=== PATIENT | male | born 1990 ===

== ENCOUNTER 2023-04-17 11:40 | Emergency (ER) | payer SELFPAY ==
[~2023-04-17] VITALS: Ht 177.8 cm; Wt 102.0 kg
--- NOTE | 2023-04-17 12:08 | ED Cough/URI ---
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 Source: patient Exam Limitations: no limitations (PADILLA CAMARA) History of Present Illness Date Seen by Provider: Apr 17, 2023 Time Seen by Provider: 12:04 Initial Comments Patient Is a 32-year-old male who presents ED with shortness of breath right- sided posterior rib pain. Patient states symptoms started about a week ago. Nasal congestion with a wet cough. Coughing seems to be worse in the morning when he wakes up. States he feels congested. Today started having some wheezing uses albuterol inhaler this small with improvement of this developing right-sided rib pain today and shortness of breath this morning. Wheezing has improved. Possible exposure to COVID. History of asthma but has not used his inhaler for at least 5 years. He is concern for upper respiratory infection. Denies fever, chills, nausea, vomiting, diarrhea, abdominal pain, sore throat or ear pain. Patient denies of any recent travels or surgeries. Denies of any history of COPD, smoking, heart disease, diabetes (PADILLA CAMARA) Allergies and Home Medications Allergies Coded Allergies: No Known Drug Allergies (Unverified , 04/17/23) Patient Home Medication List Home Medication List Reviewed: Yes (PADILLA CAMARA) Azithromycin (Azithromycin) 250 Mg Tablet, 250 MG PO UD Prescribed by: JESSICA JONES on 04/17/23 1236 Prednisone (Prednisone) 20 Mg Tab, 40 MG PO DAILY Prescribed by: JESSICA JONES on 04/17/23 1236 Review of Systems Review of Systems Constitutional: No chills, No diaphoresis EENTM: nose congestion; No hearing loss, No ear pain, No blurred vision Respiratory: cough; No dyspnea on exertion Cardiovascular: No chest pain, No edema Gastrointestinal: No abdominal pain, No diarrhea, No nausea, No vomiting Genitourinary: No decreased output, No discharge Musculoskeletal: No back pain Skin: No change in color (PADILLA CAMARA) All Other Systems Reviewed Negative Unless Noted: Yes (PADILLA CAMARA) Past Htyrmly-Yfnrpl-Bxrpqr Hx Patient Social History Tobacco Use?: No Use of E-Cig and/or Vaping dev: No Substance use?: No Alcohol Use?: Yes Alcohol type: Beer Alcohol Frequency: Once in a while Pt feels they are or have been: No (PADILLA ACMARA) Immunizations Up To Date Influenza Vaccine Up-to-Date: Yes; Up-to-Date First/Initial COVID19 Vaccinat: 2020 COVID19 Vaccine Baker Operator Automatic: j&j (PADILLA CAMARA) Past Medical History Surgery/Hospitalization HX: DENIES (PADILLA CAMARA) Physical Exam Vital Signs - First Documented 04/17/23 11:49 Temp 37.1 Pulse 74 Resp 16 B/P (MAP) 149/98 (115) Pulse Ox 97 (HOME MERINO MD) Capillary Refill : (PADILLA CAMARA) Height: '" Weight: lbs. oz. kg; 32.00 BMI Method: General Appearance: WD/WN, no apparent distress Eyes: Bilateral Eye Normal Inspection, Bilateral Eye PERRL, Bilateral Eye EOMI HEENT: PERRL/EOMI, normal ENT inspection, TMs normal, pharynx normal Neck: non-tender, full range of motion, supple, normal inspection Respiratory: chest non-tender, lungs clear, normal breath sounds, no respiratory distress, no accessory muscle use Cardiovascular: regular rate, rhythm, no edema, no gallop, no JVD Gastrointestinal: normal bowel sounds, non tender, soft, no organomegaly Extremities: normal range of motion, normal inspection, no pedal edema, no calf tenderness Neurologic/Psychiatric: discovery guide II-XII nml as tested, no motor/sensory deficits, alert, normal mood/affect, oriented x 3 Skin: normal color, warm/dry (PADILLA CAMARA) Progress/Results/Core Measures Suspected Sepsis SIRS Temperature: Pulse: 74 Respiratory Rate: 16 Blood Pressure 149 /98 Mean: 115 (PADILLA CAMARA) Results/Orders Lab Results Laboratory Tests Test 04/17/23 11:58 Range/Units Influenza Type A (RT-PCR) Not Detected Not Detecte Influenza Type B (RT-PCR) Not Detected Not Detecte SARS-CoV-2 RNA (RT-PCR) Not Detected Not Detecte (HOME MERINO MD) Vital Signs/I&O 04/17/23 04/17/23 11:49 12:39 Temp 37.1 37.1 Pulse 74 74 Resp 16 16 B/P (MAP) 149/98 (115) 149/98 Pulse Ox 97 97 (HOME MERINO MD) Vital Signs/I&O Capillary Refill : (PADILLA CAMARA) Blood Pressure Mean: 115 Departure Communication (PCP) Patient presents ED with continuous cough.*Developing right sided posterior rib pain with wheezing this morning. History of asthma last use of albuterol inhaler 5 years ago. Wheezing this morning used inhaler with improvement. On exam lung sounds clear bilateral. No wheezing. Afebrile with stable vital signs. Exam otherwise benign. Due to continuous cough x-ray was ordered which was negative for pneumonia. Denies history of smoking. COVID influenza negative. Suspect bronchitis. Due to worsening cough wheezing suspect underlying reactive. Will discharge with short burst steroids Z-Yannick for potential atypical infection versus early pneumonia. Follow-up your PCP in 2 to 3 days for reevaluation. If any worsening symptoms return back to ED. No evidence of respiratory distress. (PADILLA CAMARA) Impression Primary Impression: Bronchitis Disposition: 01 HOME, SELF-CARE Condition: Stable Departure-Patient Inst. Decision time for Depature: 12:06 (PADILLA CAMARA) Referrals: [facility],LOCAL PHYSICIAN (PCP) Primary Care Physician Patient Instructions: Acute bronchitis Scripts Prednisone (Prednisone) 20 Mg Tab 40 MG PO DAILY for 5 Days, #10 TAB Prov: PADILLA CAMARA 04/17/23 Azithromycin (Azithromycin) 250 Mg Tablet 250 MG PO UD, #6 TAB TAKE 2 TABLETS ON DAY ONE THEN TAKE 1 TABLET DAILY FOR FOUR MORE DAYS Prov: PADILLA CAMARA 04/17/23 Work/School Note: Work Release Form Date Seen in the Emergency Department: Apr 17, 2023 Return to Work: Apr 19, 2023 ATTENDING PHYSICIAN NOTE: I was physically present as attending physician in the emergency department during the care of this patient, but I was not directly involved in the decision making or delivery of care for this patient. (HOME MERINO MD) PADILLA CAMARA Apr 17, 2023 12:07 HOME MERINO MD Apr 18, 2023 12:03
--- NOTE | 2023-04-17 12:28 | Diagnostic Imaging Report ---
INDICATION: Shortness of breath x1 week, increased in severity. TECHNIQUE: Single view chest 12:19 PM. CORRELATION STUDY: None FINDINGS: The heart size, mediastinal configuration and pulmonary vascularity are within normal limits. The lungs are clear with no consolidating infiltrate. There is no significant effusion or pneumothorax. IMPRESSION: 1. Negative appearing single view chest. Dictated by: Dictated on workstation # [id number]
[2023-04-17] MEDS ORDERED: AZIT250T12 PO (12:36)
[2023-04-17] MEDS ORDERED: PRD20T PO (12:36)
[2023-04-17 12:39] VITALS: BP 149/98
== END 2023-04-17 12:39 | disposition home or self-care (01) ==
LOC: ER 11:44
DX: J40 Bronchitis, not specified as acute or chronic (principal); Z28.311 Partially vaccinated for COVID-19; Z20.822 Contact with and (suspected) exposure to COVID-19
CPT/HCPCS: 71045; 87636